=== PATIENT | male | born 1950 | race Caucasian/White ===

== ENCOUNTER 2017-02-03 18:40 | Inpatient (IN) | payer OTHER ==
--- NOTE | ~2017-02-03 | PRECARD ---
[facility]&P [facility] [address] [place] [place]. [address] NAME: MARIO WOOD : [birth year] STATUS : ADM IN [facility]#: [id number] AGE: 66 ADM/REG DATE : 02/03/17 MR#: [id number] REPORT SERV DATE: 02/03/17 DICTATED BY: OBED MEDEIROS DATE: 02/03/17 REPORT STATUS : Draft TRANSCRIBED BY: SAMEER DATE: 02/03/17 DATE OF ADMISSION: 02/03/2017 CHIEF COMPLAINT: Near syncope. REASON FOR TRANSFER: Ventricular tachycardia. SOURCE: The patient and the chart. HISTORY OF PRESENT ILLNESS: Mr. Wood is a very pleasant 66-year-old white man with no significant past cardiac history. He reports that over the last one or two weeks. He has had near fainting spells when he gets up. This morning about 11 a.m., he bent down and then got up and felt very dizzy and lightheaded. Things went dark and he nearly lost consciousness. This lasted about 30 to 40 seconds and then got better. He had some shortness of breath, but no nausea, vomiting, or diaphoresis. He did not have any chest pain. No palpitations. He went to the walk-in clinic who noted an irregular pulse and sent him to the ER at [facility] and there en route he had vibration of his arms, vibration of his neck, and felt very bad. They did test him and sent him to [facility] at family's request for further care. REVIEW OF SYSTEMS: All other systems are negative. ALLERGIES: CODEINE. MEDICATIONS AT HOME: Included Claritin, glucosamine, and vitamin C. CARDIAC RISK FACTORS: None. SOCIAL HISTORY: The patient lives in [place]. He is . He has one son who is alive and well. 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 PAST MEDICAL HISTORY: Significant for gallbladder surgery in 1985, partial thyroid surgery in 1988, laser eye surgery, and tonsillectomy. PHYSICAL EXAMINATION: GENERAL: He is a well-developed, well-nourished elderly white man, in no acute distress. VITAL SIGNS: Stable. Afebrile. HEENT: Sclerae anicteric. Lips without cyanosis. NECK: Carotids 2+ and symmetrical. No bruits. No JVD. No thyromegaly. LUNGS: Clear to auscultation. No use of accessory muscles. HEART: Regular rate and rhythm without murmur, gallop, or rub. ABDOMEN: Positive bowel sounds. Soft, nontender. EXTREMITIES: Pulses 2+ and symmetrical. No cyanosis, clubbing, or edema. BACK: No CVA tenderness. MUSCULOSKELETAL: Good tone. H&P [address] [address] NAME: MARIO WOOD : [birth year] STATUS : ADM IN [facility]#: [id number] AGE: 66 ADM/REG DATE : 02/03/17 MR#: [id number] REPORT SERV DATE: 02/03/17 DICTATED BY: OBED MEDEIROS DATE: 02/03/17 REPORT STATUS : Draft TRANSCRIBED BY: SAMEER DATE: 02/03/17 NEUROLOGIC: Alert and oriented x3. IMAGING: EKG from [facility] sinus tachycardia with frequent and consecutive PVCs, possible left atrial enlargement. Nonspecific ST-T wave changes. Second tracing, sinus tachycardia, possible left atrial enlargement. The telemetry strips reveal sinus rhythm with frequent nonsustained ventricular tachycardia and PVCs. The beats are mostly monomorphic. LABORATORY EXAMINATION: From [facility] was PTT of 29, INR of 1.02, D-dimer 0.33 which was normal. Sodium 136, potassium 3.3, chloride 99, CO2 of 22, glucose 104, BUN 14, creatinine 1.1. Lactate 3.66. White count 12.1, hemoglobin 17.2, hematocrit 49.8, platelets 191,000. TSH 1.78. Free T4 of 0.92. IMPRESSION: 1. Near syncope. 2. Nonsustained ventricular tachycardia. 3. No prior cardiac risk factors. 4. Hypokalemia with potassium of 3.3 at [facility]. RECOMMENDATIONS: 1. ICU care, defibrillation pads. 2. See orders. 3. Electrolyte replacement protocol. 4. Check cardiac enzymes, 12-lead EKG. 5. Aspirin and metoprolol. 6. IV amiodarone placed PICC line. 7. Echocardiogram for assessment of left ventricular systolic function. 8. Consider cardiac catheterization and possible angioplasty on 02/05/2017. If he remains stable, if negative, consider EP evaluation. LESLEY/SAMEER Obed Medeiros M.D. / [id number] CC: Scott Correa MD UNKNOWN
--- NOTE | ~2017-02-03 | DS ---
Discharge Summary [facility] [address] [place]. [address] NAME: MARIO WOOD : 54 STATUS : DIS IN PAT#: [id number] AGE: 66 ADM/REG DATE : 02/03/17 MR#: [id number] REPORT SERV DATE: 02/16/17 DICTATED BY: OBED PERSAUD DATE: 02/15/17 REPORT STATUS : Draft TRANSCRIBED BY: SAMEER DATE: 02/15/17 Data Collection from hospitalization DISCHARGE DIAGNOSIS: Ventricular tachycardia. CONSULTATIONS: None. PROCEDURES PERFORMED: Cardiac catheterization, 02/06/2017. MEDICATIONS: ( ) ( ) CONDITION AT DISCHARGE: Stable. DISPOSITION: The patient was transferred to [place], [place] on a regular diet with activities as instructed. HOSPITAL COURSE: This is a 66-year-old man, who has no significant past cardiac history. He reports that over the last one to two weeks, he had near-fainting spells when he would get up. On the morning of this admission, around 11 a.m., he bent down and then got up and felt very dizzy and lightheaded, things went dark, and he nearly lost consciousness. This lasted for 30-40 seconds and then got better. He had some shortness of breath, but no nausea, vomiting, or diaphoresis. He did not have any chest pain or palpitations. He went to a walk-in clinic who noted an irregular pulse and sent him to the emergency room at [facility]. There, en route, he had vibration of his arms, vibration of his neck, and he felt very bad. They did test him and sent him to [facility] at his family's request for further care. He was admitted to the hospital at this time for further evaluation and treatment. Upon admission, the EKG from [facility] was reviewed and revealed sinus tachycardia with frequent and consecutive PVCs, possible left atrial enlargement, nonspecific ST-T wave changes. Second tracing revealed sinus tachycardia and possible left atrial enlargement. The telemetry strips revealed sinus rhythm with frequent nonsustained ventricular tachycardia and PVCs. The beats were mostly monomorphic. White count was 12.1. INR level was 1.02. He was felt to have nonsustained ventricular tachycardia. There had been no prior cardiac risk factors. He does have hypokalemia with potassium at [facility] of 3.3. He was going to receive ICU care and defibrillation pads. Electrolyte replacement protocol was begun. We were going to check cardiac enzymes and a 12-lead EKG. Aspirin and metoprolol would be provided as well as IV amiodarone. A PICC line was inserted. Echocardiogram was requested for assessment of left ventricular systolic function. We would consider cardiac catheterization and possible angioplasty. The following day, he was feeling good. He had no chest pain, shortness of breath, or palpitations. Telemetry revealed sinus rhythm-nonsustained ventricular tachycardia. His lungs were clear. His ventricular tachycardia was quiescent on amiodarone and beta-indra. Metoprolol was decreased. Plans were being made for a cardiac catheterization and possible percutaneous coronary intervention to be performed. Potassium supplementation continued. An echocardiogram was performed. A PICC line was inserted. On the , he had been in nonsustained ventricular tachycardia during the night. He did have some sharp chest pain. Discharge Summary [address] [address] NAME: MARIO WOOD : [birth year] STATUS : DIS IN PAT#: [id number] AGE: 66 ADM/REG DATE : 02/03/17 MR#: [id number] REPORT SERV DATE: 02/16/17 DICTATED BY: OBED PERSAUD DATE: 02/15/17 REPORT STATUS : Draft TRANSCRIBED BY: SAMEER DATE: 02/15/17 He had no shortness of breath or palpitations. His lungs remained clear. Echocardiogram revealed left ventricular ejection fraction of 0.55. He does have aortic sclerosis without stenosis. There were no wall motion abnormalities. He received an amiodarone bolus and was now in a sinus rhythm. Potassium supplementation continued. On 02/06/2017, he was taken to the cardiac denture laboratory technician, where he underwent the above-mentioned procedure by Dr. Caio Payan. He had angiographically normal coronary arteries with codominant system. There was normal left ventricular systolic function with left ventricular ejection fraction visually estimated at 55%. He had normal left ventricular end-diastolic pressure. We would consider electrophysiology study/ventricular tachycardia ablation. We discussed the findings of the cardiac catheterization and the recommendation of electrophysiology study/ablation with Dr. Camilo Boggs, an packer sausage and wiener at [facility], who agreed to accept the patient in transfer. Discharge instructions were given. Due to his improved and stable condition, he was discharged to [facility] with the above-stated instructions. Information collected by: Anu Carlisle I submit the above information as my discharge summary. NORY/SAMEER Obed Persaud M.D. / [id number] CC: MD Olya Amaral D.O. F.A.CPatrickPPatrick [facility]
[2017-02-03] MEDS ORDERED: ASAB PO (20:00)
[2017-02-03] MEDS ORDERED: GLUCOSAMINEPO PO (20:00)
[2017-02-03] MEDS ORDERED: VITC500 PO (20:01)
[2017-02-03 21:26] LABS: BASOPHILS 0.2 %; BASOPHILS ABSOLUTE 0.02 10/3/uL (0.0-0.16); EOSINOPHILS 0.4 %; EOSINOPHILS ABSOLUTE 0.04 10/3/uL (0.0-0.53); HEMATOCRIT 44.5 % (40.0-51.0); HEMOGLOBIN 15.9 g/dL (13.6-17.8); IMMATURE GRANULOCYTES 0.2 %; IMMATURE GRANULOCYTES ABSOLUTE 0.02 10/3/uL (0.0-0.11); LYMPHOCYTES 23.1 %; MEAN CORPUS HGB CONC 35.7 g/dL (32.0-36.0); MEAN CORPUSCULAR HEMOGLOB 31.5 pg (26.0-34.0); MEAN CORPUSCULAR VOLUME 88.3 fL (80-100); MEAN PLATELET VOLUME 11.3 fL (9.2-13.0); MONOCYTES 7.1 %; MONOCYTES ABSOLUTE 0.65 10/3/uL (0.21-1.20); NEUTROPHILS ABSOLUTE 6.27 10/3/uL (2.02-8.40); RBC DISTRIBUTION WIDTH 13.4 % (12.0-16.0); RED CELL COUNT 5.04 10/6/uL (4.7-6.1); WHITE BLOOD CELLS 9.1 10/3/uL (4.5-10.5)
[2017-02-03 21:27] LABS: MANUAL DIFF NO %; PLATELET COUNT 179 10/3/uL (150-400)
[2017-02-03 21:34] LABS: INTERNATIONAL NORMAL RATI 1.2 UNITS (-); PARTIAL THROMBO TIME 31.5 SEC (22.5-37.2); PROTIME (NOT ORD) 14.9 SEC (12.0-14.5)
[2017-02-03 21:44] LABS: A/G RATIO 1.1 (0.7-1.9); ALBUMIN 3.7 G/DL (3.5-5.0); ALKALINE PHOSPHATASE 61 U/L (45-117); BUN (BLOOD UREA NITROGEN) 11 MG/DL (6-23); CALCIUM, SERUM 9.4 MG/DL (8.5-10.4); CHLORIDE, SERUM 107 MMOL/L (96-112); CO2 (CARBON DIOXIDE) 26 MMOL/L (24-34); CPK 70 U/L (0-200); CREATININE 1.03 MG/DL (0.70-1.30); GFR AFRICAN AMERICAN 89 ML/MIN (>=60); GFR NON AFRICAN AMERICAN 76 ML/MIN (>=60); GLOBULIN 3.4 G/DL (2.5-4.1); GLUCOSE, SERUM 107 MG/DL (60-99); POTASSIUM, SERUM 4.2 MMOL/L (3.5-5.3); SGOT(AST) 17 U/L (5-40); SGPT(ALT) 26 U/L (5-65); SODIUM, SERUM 141 MMOL/L (135-148); TOTAL PROTEIN 7.1 G/DL (6.0-8.5)
[2017-02-03 21:49] LABS: CK-MB 0.8 NG/ML
[2017-02-04 04:17] LABS: CPK 68 U/L (0-200)
[2017-02-04 04:18] LABS: CK-MB 0.9 NG/ML
[2017-02-05 05:31] LABS: POTASSIUM, SERUM 4.2 MMOL/L (3.5-5.3)
[2017-02-06 04:50] LABS: BASOPHILS 0.1 %; BASOPHILS ABSOLUTE 0.01 10/3/uL (0.0-0.16); EOSINOPHILS 1.9 %; EOSINOPHILS ABSOLUTE 0.14 10/3/uL (0.0-0.53); HEMOGLOBIN 16.8 g/dL (13.6-17.8); IMMATURE GRANULOCYTES 0.3 %; IMMATURE GRANULOCYTES ABSOLUTE 0.02 10/3/uL (0.0-0.11); LYMPHOCYTES ABSOLUTE 2.23 10/3/uL (0.67-4.30); MANUAL DIFF NO %; MEAN CORPUSCULAR HEMOGLOB 31.5 pg (26.0-34.0); MEAN CORPUSCULAR VOLUME 90.1 fL (80-100); MONOCYTES 11.7 %; MONOCYTES ABSOLUTE 0.84 10/3/uL (0.21-1.20); NEUTROPHILS ABSOLUTE 3.96 10/3/uL (2.02-8.40); PLATELET COUNT 191 10/3/uL (150-400); RBC DISTRIBUTION WIDTH 13.5 % (12.0-16.0); RED CELL COUNT 5.33 10/6/uL (4.7-6.1); WHITE BLOOD CELLS 7.2 10/3/uL (4.5-10.5)
[2017-02-06 04:54] LABS: INTERNATIONAL NORMAL RATI 1.1 UNITS (-); PROTIME (NOT ORD) 14.2 SEC (12.0-14.5)
[2017-02-06 05:08] LABS: CALCIUM, SERUM 9.3 MG/DL (8.5-10.4); CHLORIDE, SERUM 106 MMOL/L (96-112); CHOL/HDL RATIO(NOT ORDER) 4.9 (0-5); CHOLESTEROL 166 MG/DL (< 200); CO2 (CARBON DIOXIDE) 28 MMOL/L (24-34); CREATININE 1.06 MG/DL (0.70-1.30); GFR AFRICAN AMERICAN 86 ML/MIN (>=60); GFR NON AFRICAN AMERICAN 74 ML/MIN (>=60); GLUCOSE, SERUM 106 MG/DL (60-99); HDL CHOLESTEROL 34 MG/DL (> 39); LDL CHOLESTEROL 108 MG/DL (< 130); NON-HDL CHOLESTEROL 132 MG/DL (< 160); POTASSIUM, SERUM 3.6 MMOL/L (3.5-5.3); TRIGLYCERIDE 120 MG/DL (< 150)
[2017-02-06 05:09] LABS: BUN (BLOOD UREA NITROGEN) 15 MG/DL (6-23); SODIUM, SERUM 134 MMOL/L (135-148)
== END 2017-02-06 20:38 | disposition short-term general hospital (02) | DRG 287 ==
LOC: 5NO 18:40 → CCU 20:44
PROVIDERS: Internal Medicine Cardiovascular Disease; Student in an Organized Health Care Education/Training Program
PROC: B2151ZZ Fluoroscopy of Left Heart using Low Osmolar Contrast (ICD-10-PCS; principal; 2017-02-06)
PROC: B2111ZZ Fluoroscopy of Multiple Coronary Arteries using Low Osmolar Contrast (ICD-10-PCS; 2017-02-06)
PROC: 4A023N7 Measurement of Cardiac Sampling and Pressure, Left Heart, Percutaneous Approach (ICD-10-PCS; 2017-02-06)
PROC: 02HV33Z Insertion of Infusion Device into Superior Vena Cava, Percutaneous Approach (ICD-10-PCS; 2017-02-06)
PROC: 4A02X4A Measurement of Cardiac Electrical Activity, Guidance, External Approach (ICD-10-PCS; 2017-02-06)
DX: I47.1 Supraventricular tachycardia (principal); R55 Syncope and collapse; I25.110 Atherosclerotic heart disease of native coronary artery with unstable angina pectoris; E87.6 Hypokalemia; Z98.890 Other specified postprocedural states; Z88.5 Allergy status to narcotic agent
CPT/HCPCS: 36569; 80048; 80053; 80061; 82550; 82553; 83735; 84132; 85025; 85610; 85730; 87641; 93005; 93306; 93458; 99152; 99153; A9270-GY; C1751; C1769; C1894; J0282; J2250; J2405; J3010; Q9967